=== PATIENT | male | born 1990 ===

== ENCOUNTER 2017-07-01 15:18 | Emergency (ER) | payer MEDICAID, OTHER ==
[2017-07-01 15:26] VITALS: PULSE 67; RESP 18; TEMP 97.4; O2SAT 99
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
[2017-07-01 18:08] LABS: BARBITURATES, UR NEGATIVE (NEGATIVE); BENZODIAZEPINES, UR NEGATIVE (NEGATIVE); OPIATES, UR NEGATIVE (NEGATIVE); PHENCYCLIDINE, UR NEGATIVE (NEGATIVE)
[2017-07-01 19:52] VITALS: BP 132/84
== END 2017-07-01 19:51 | disposition home or self-care (01) ==
LOC: H.ER 15:18
DX: F31.9 Bipolar disorder, unspecified (principal)